=== PATIENT | male | born 1945 | race Caucasian/White ===

== ENCOUNTER 2025-07-31 08:54 | Day surgery (SDC) | payer OTHER ==
[2025-07-31] MEDS ORDERED: Propofol 200 MG/20 ML SDV ONE (10:20)
== END 2025-07-31 11:33 | disposition home or self-care (01) ==
LOC: LB.SDS 08:54
PROVIDERS: ATTEND Surgery
DX: Z12.11 Encounter for screening for malignant neoplasm of colon (principal); D12.0 Benign neoplasm of cecum; D12.2 Benign neoplasm of ascending colon; K57.30 Diverticulosis of large intestine without perforation or abscess without bleeding; K21.9 Gastro-esophageal reflux disease without esophagitis; I10 Essential (primary) hypertension; Z79.899 Other long term (current) drug therapy
CPT/HCPCS: 88305; 88341; J2704; J7030